=== PATIENT | male | born 1960 | race Two or more races ===

== ENCOUNTER 2017-11-29 10:42 | Emergency (ER) | payer OTHER ==
--- NOTE | 2017-11-29 11:35 | ER Document Report ---
ED Extremity Problem, Lower <GARETH SANDY Kole - Last Filed: 11/29/17 12:17> - General Mode of Arrival: Ambulatory Information source: Patient TRAVEL OUTSIDE OF THE [place] IN LAST 30 DAYS: No <GENA BRADYON - Last Filed: 11/29/17 14:18> - General Chief Complaint: Leg Pain Stated Complaint: LEG PAIN Time Seen by Provider: 11/29/17 11:26 Notes: Patient is a 57 year old male that presents to the emergency department today with complaints of right knee pain. Patient states he was walking down steps and he lost his balance but never fell. Patient states he put all his weight on his right leg and twisted his right knee. Patient is able to bear weight and ambulate with mild pain. (HERBERT BRADY) Past Medical History - General Information source: Patient - Social History Smoking Status: Never Smoker Cigarette use (# per day): No Chew tobacco use (# tins/day): No Frequency of alcohol use: Occasional Drug Abuse: None Lives with: Family Family History: Reviewed & Not Pertinent Patient has suicidal ideation: No Patient has homicidal ideation: No Renal/ Medical History: Denies: Hx Peritoneal Dialysis Past Surgical History: Reports: Hx Orthopedic Surgery - right hand <CAITLYNHERBERT - Last Filed: 11/29/17 14:18> Review of Systems - Review of Systems Constitutional: No symptoms reported EENT: No symptoms reported Cardiovascular: No symptoms reported Respiratory: No symptoms reported Gastrointestinal: No symptoms reported Genitourinary: No symptoms reported Male Genitourinary: No symptoms reported Musculoskeletal: See HPI, Joint pain - right knee Skin: No symptoms reported Hematologic/Lymphatic: No symptoms reported Neurological/Psychological: No symptoms reported -: Yes All other systems reviewed and negative <HERBERT BRADY - Last Filed: 11/29/17 14:18> Physical Exam <GARETH SANDY [place] - Last Filed: 11/29/17 12:17> <HERBERT BRADY - Last Filed: 11/29/17 14:18> - Vital signs Vitals: Temp Pulse Resp BP Pulse Ox 97.9 F 74 20 144/72 H 99 11/29/17 10:54 11/29/17 10:54 11/29/17 10:54 11/29/17 10:54 11/29/17 10:54 - Notes Notes: Physical Exam: General: Alert, appears well. HEENT: Normocephalic. Atraumatic. PERRL. Extraocular movements intact. Oropharynx clear. Neck: Supple. Non-tender. Respiratory: No respiratory distress. Clear and equal breath sounds bilaterally. Cardiovascular: Regular rate and rhythm. Abdominal: Obese. No distension. Normal Bowel Sounds. Back: Non-tender. No deformity or step off. Extremities: Moves all four extremities. Upper extremities: Normal inspection. Normal ROM. Lower extremities: Mild tenderness with palpation over medial aspect of right knee. No ligamentous laxity. Neurological: Normal cognition. AAOx4. Normal speech. Psychological: Normal affect. Normal Mood. Skin: Warm. Dry. Normal color. (HERBERT BRADY) Course - Diagnostic Test Radiology reviewed: Image reviewed - Osteoarthritis and osteophytes with no evidence of dislocation or fracture <GARETH SANDY - Last Filed: 11/29/17 12:17> <HERBERT BRADY - Last Filed: 11/29/17 14:18> - Re-evaluation Re-evalutation: 11/29/17 12:17 Osteoarthritis and osteophytes with no evidence of fx of dislocation of L knee. Will provide knee brace for support, PCP f/u in 2 weeks. Return precautions provided. (GARETH SANDY) - Vital Signs Vital signs: Temp Pulse Resp BP Pulse Ox 97.8 F 72 16 141/68 H 99 11/29/17 12:40 11/29/17 12:40 11/29/17 12:40 11/29/17 12:40 11/29/17 12:40 Discharge <GARETH SANDY - Last Filed: 11/29/17 12:17> <HERBERT BRADY - Last Filed: 11/29/17 14:18> - Discharge Clinical Impression: Knee strain Qualifiers: Encounter type: initial encounter Laterality: left Qualified Code(s): S86.912A - Strain of unspecified muscle(s) and tendon(s) at lower leg level, left leg, initial encounter Condition: Stable Disposition: HOME, SELF-CARE Instructions: Sprained Knee ([facility]) Additional Instructions: If symptoms continue after 2 weeks please see community clinic or primary care physician for further evaluation Prescriptions: Naproxen 500 mg PO BID #20 tablet Forms: Return to Work Scribe Documentation - Scribe Written by Scribe:: Aye Campa, 11/29/2017 1418 acting as scribe for :: Long <HERBERT BRADY - Last Filed: 11/29/17 14:18>
--- NOTE | 2017-11-29 12:28 | RADIOLOGY REPORT (SQ) ---
EXAM DESCRIPTION: KNEE RIGHT 2 VIEWS COMPLETED DATE/TIME: 11/29/2017 12:01 pm REASON FOR STUDY: twisted knee COMPARISON: None. NUMBER OF VIEWS: Two views TECHNIQUE: AP and lateral radiographic images acquired of the right knee. LIMITATIONS: None. FINDINGS: MINERALIZATION: Normal. BONES: No acute fracture or dislocation. No worrisome bone lesions. JOINT: Degenerative changes are identified with osteophytic lipping at the level of the medial and la teral compartments. SOFT TISSUES: No soft tissue swelling. No radio-opaque foreign body. OTHER: On the AP view the patella is identified slightly lateral to the trabecular groove which may o nly be positional in nature however I cannot exclude a degree of subluxation. Clinical correlation i s recommended IMPRESSION: Degenerative changes without evidence for fracture. TECHNICAL DOCUMENTATION: JOB ID: [id number] [employer]- All Rights Reserved Reading location - IP/workstation name: [email or web address]
[2017-11-29 12:49] VITALS: BP 141/68
== END 2017-11-29 12:45 | disposition home or self-care (01) ==
LOC: ER 10:42
DX: S86.912A Strain of unspecified muscle(s) and tendon(s) at lower leg level, left leg, initial encounter (principal); M25.561 Pain in right knee; E66.9 Obesity, unspecified; X58.XXXA Exposure to other specified factors, initial encounter
CPT/HCPCS: 99283

== ENCOUNTER 2018-02-12 08:18 | Emergency (ER) | payer OTHER ==
[2018-02-12 08:27] VITALS: BP 159/78
--- NOTE | 2018-02-12 08:50 | ER Document Report ---
ED General - General Chief Complaint: Foot Pain Stated Complaint: FOOT PAIN Time Seen by Provider: 02/12/18 08:39 Mode of Arrival: Ambulatory Information source: Patient TRAVEL OUTSIDE OF THE [place] IN LAST 30 DAYS: No - HPI Notes: 58-year-old male presents to the ED for evaluation of right foot after experiencing right foot pain for the last 3 months. Unable to bear full weight [place], has been using crutches for ambulation. Denies any numbness down bilateral lower extremities. Worse with time, nothing makes better. Pain is 4 out of 10, throbbing achy. Has not followed up with a primary care provider for this complaint. Denies fevers, chills, chest pain,palpitations, shortness of breath, dyspnea, nausea, vomiting, diarrhea, abdominal pain, hematuria,blurred vision, double vision, loss of vision, speech changes, LH, dizziness, syncope, headaches, wheezing, ST, URI, neck pain, weakness, bowel or bladder dysfunction, saddle anesthesia, numbness or tingling in bilateral upper or lower extremities equally, muscle paralysis, weakness in bilateral upper or lower extremities equally or rash. Denies IV drug use. - Related Data Allergies/Adverse Reactions: No Known Allergies Allergy (Unverified 02/12/18 08:20) Past Medical History - General Information source: Patient - Social History Smoking Status: Unknown if Ever Smoked Family History: Reviewed & Not Pertinent Renal/ Medical History: Denies: Hx Peritoneal Dialysis Past Surgical History: Reports: Hx Orthopedic Surgery - right hand Review of Systems - Review of Systems Constitutional: No symptoms reported EENT: No symptoms reported Cardiovascular: No symptoms reported Respiratory: No symptoms reported Gastrointestinal: No symptoms reported Genitourinary: No symptoms reported Male Genitourinary: No symptoms reported Musculoskeletal: See HPI Skin: No symptoms reported Hematologic/Lymphatic: No symptoms reported Neurological/Psychological: No symptoms reported Physical Exam - Vital signs Vitals: Temp Pulse Resp BP Pulse Ox 98.8 F 68 70 H 159/78 H 96 02/12/18 08:24 02/12/18 08:24 02/12/18 08:24 02/12/18 08:24 02/12/18 08:24 - Notes Notes: PHYSICAL EXAMINATION: GENERAL: Well-appearing, well-nourished and in no acute distress. HEAD: Atraumatic, normocephalic. EYES: Pupils equal round and reactive to light, extraocular movements intact, sclera anicteric, conjunctiva are normal. ENT: Nares patent, oropharynx clear without exudates. Moist mucous membranes. NECK: Normal range of motion, supple without lymphadenopathy LUNGS: Breath sounds clear to auscultation bilaterally and equal. No wheezes rales or rhonchi. HEART: Regular rate and rhythm without murmurs ABDOMEN: Soft, nontender, nondistended abdomen. No guarding, no rebound. No masses appreciated. Musculoskeletal: Normal range of motion, no pitting or edema. No cyanosis. right foot with STS and tenderness on ____metatarsal bones with palpation. Unable to palpate a step-off. No open lesions. squeeze test negative. dtr +2 BLE. Limited APROM. distal pulses + 2 in BUE. full motor and sensory function. No vascular compromise. Ankle exam within normal limits. No noted lacerations, lesions, ulcers or break in the skin. NEUROLOGICAL: Cranial nerves grossly intact. Normal speech, normal gait. Normal sensory, motor exams PSYCH: Normal mood, normal affect. SKIN: Warm, Dry, normal turgor, no rashes or lesions noted. Course - Re-evaluation Re-evalutation: 02/12/18 09:34 58-year-old male who is afebrile, vitals stable and in no distress presents for evaluation of right foot pain for the last 3 months. X-ray shows degenerative joint changes with several cyst that protrudes with several loose bodies. Discussed findings with patient. Advised to follow-up with podiatrist orthopedic and primary care provider. Postop shoe provided. Alternate between ibuprofen and Tylenol for pain control, elevation. Continue to use crutches. I have reevaluated this patient multiple times and no significant life threatening changes, no signs of toxicity, sepsis or peritonitis are noted. The patient and I have discussed the diagnosis and risks, and we agree with discharging home and close follow-up. We also discussed returning to the Emergency Department immediately if new or worsening symptoms occur with the understanding that symptoms and presentations can change. At this time will discharge with return precautions and follow-up recommendations. Verbal discharge instructions given a the bedside and opportunity for questions given. We have discussed the symptoms which are most concerning (e.g., numbness or tingling bilateral lower extremities, worsening pain, fevers or chills) that necessitate immediate return. Medication warnings reviewed. All questions and concerns answered by this provider. Patient is in agreement with this plan and has verbalized understanding of return precautions and the need for primary care follow-up in the next 24-72 hours. Patient verbalized understanding of plan of care and agree with plan of care. After performing a Medical Screening Examination, I estimate there is LOW risk for OPEN FRACTURE, COMPARTMENT SYNDROME, TENDON RUPTURE, ACUTE NEUROVASCULAR INJURY, or RETAINED FOREIGN BODY, thus I consider the discharge disposition reasonable. Also, there is no evidence or peritonitis, sepsis, or toxicity. I have reevaluated this patient multiple times and no significant life threatening changes are noted. The patient and I have discussed the diagnosis and risks, and we agree with discharging home with close follow-up with the understanding that symptoms and presentations can change. We also discussed returning to the Emergency Department immediately if new or worsening symptoms occur. We have discussed the symptoms which are most concerning (e.g., changing or worsening pain, fever, numbness, weakness, cool or painful digits) that necessitate immediate return. - Vital Signs Vital signs: Temp Pulse Resp BP Pulse Ox 98.8 F 68 70 H 159/78 H 96 02/12/18 08:24 02/12/18 08:24 02/12/18 08:24 02/12/18 08:24 02/12/18 08:24 Discharge - Discharge Clinical Impression: Right foot sprain Condition: Stable Disposition: HOME, SELF-CARE Instructions: Exercises for the Foot Muscles ([facility]), Sprain ([facility]) Additional Instructions: SPRAIN: Your injury is a sprain. A sprain results from stretching or tearing of the ligaments, usually from a twisting injury. The ligaments will require time and protection in order to heal properly. Many sprains are quite disabling and should be taken seriously. The usual initial treatment of sprains is cold packs, elevation, and rest of the injured area. Your physician has assessed the seriousness of your ligament injury, and has outlined a treatment plan. Understand that this treatment may change, depending on how you progress. If a re-examination was recommended, it is important that you follow up as instructed. Call the doctor any time if there is severe pain, numbness, or loss of function in the injured area. BEVERLY WRAP: A compression dressing (beverly wrap) has been placed. This helps hold the area still. It limits swelling and internal bleeding. The wrap should be comfortably snug -- not tight. You should feel a sense of pressure, but not severe pain under the wrap. Unless the physician tells you otherwise, you can adjust the wrap for comfort. If the wrap causes symptoms suggesting it's too tight -- uncomfortable pressure, swelling or discoloration beyond the wrap, numbness, or severe pain - - you must loosen the wrap. If these symptoms don't resolve promptly, return for re-evaluation. ICE & ELEVATION: Apply ice packs frequently against the painful area. Many different schedules are recommended, such as "20 minutes on, 20 minutes off" or "one hour ice, two hours rest." If you need to work, you may need to go longer between ice treatments. You should plan to have the area ice packed AT LEAST one- fourth of the time. The ice should be applied over the wrap, tape, or splint, or over a layer of cloth -- not directly against the skin. Some ice bags have a built-in cloth and can be put directly on the skin. Your injured part should be elevated as much as possible over the next 48 hours. Try to keep the injury above the level of the heart. Avoid use of the injured area. Elevation and rest will decrease the swelling. FOLLOW-UP CARE: If you have been referred to a physician for follow-up care, call the physician s office for an appointment as you were instructed or within the next two days. If you experience worsening or a significant change in your symptoms, notify the physician immediately or return to the Emergency Department at any time for re-evaluation. Please follow up with the [facility] [address] [place] [id number] Return immediately for any new or worsening symptoms. Follow up with primary care provider, call tomorrow to make followup appointment. Prescriptions: Naproxen 500 mg PO BID #20 tablet Forms: Return to Work Referrals: EARNESTINE LUNA MD [ACTIVE STAFF] - Follow up in 3-5 days NORA OLSEN DO [NO LOCAL MD] - Follow up in 3-5 days
--- NOTE | 2018-02-12 09:08 | RADIOLOGY REPORT (SQ) ---
EXAM DESCRIPTION: FOOT RIGHT COMPLETE COMPLETED DATE/TIME: 02/12/2018 8:58 am REASON FOR STUDY: right foot pain s/p fall x 2 months ago, +pain COMPARISON: Right foot films 11/11/2007 NUMBER OF VIEWS: Three views. TECHNIQUE: AP, lateral and oblique radiographic images acquired of the right foot. LIMITATIONS: None. FINDINGS: MINERALIZATION: Normal. BONES: No acute fracture or dislocation. No worrisome bone lesions. JOINTS: Posterior facet of the subtalar joint is abnormal, narrowed with bony sclerosis. There is a 3 to 4 cm synovial cyst with loose bodies projecting off the dorsal aspect of the posterior subtalar joint seen on lateral view. Small tibiotalar joint effusion is also seen. SOFT TISSUES: Tibiotalar and posterior subtalar joint effusions. Loose bodies in the posterior subta lar joint effusion. OTHER: No other significant finding. 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 No acute fracture. TECHNICAL DOCUMENTATION: JOB ID: [id number] [employer]- All Rights Reserved Reading location - IP/workstation name: [email or web address]
== END 2018-02-12 09:10 | disposition home or self-care (01) ==
LOC: ER 08:18
DX: S93.601A Unspecified sprain of right foot, initial encounter (principal); X58.XXXA Exposure to other specified factors, initial encounter
CPT/HCPCS: 99283